=== PATIENT | male | born 1940 | race Hispanic/Latino ===

== ENCOUNTER 2017-10-24 08:16 | Outpatient (CLI) | payer MEDICARE ==
[2017-10-24] MEDS ORDERED: ISOVUE-370 76%-LOCM 1 ML ONE (12:26)
== END 2017-10-24 08:17 | disposition home or self-care (01) ==
LOC: BICCT 08:16
PROVIDERS: ATTEND Family Medicine
DX: R63.4 Abnormal weight loss (principal); K63.89 Other specified diseases of intestine
CPT/HCPCS: 74177

== ENCOUNTER 2017-11-09 15:29 | Outpatient (CLI) | payer MEDICARE | END 2017-11-09 15:30 | disposition home or self-care (01) | LOC: BICRAD 15:29 | PROVIDERS: ATTEND Internal Medicine Gastroenterology | DX: R63.4 Abnormal weight loss (principal) | CPT/HCPCS: 71046 ==

== ENCOUNTER 2017-12-01 09:24 | Outpatient (CLI) | payer OTHER | END 2017-12-01 09:25 | disposition home or self-care (01) | LOC: DTY/OP 09:24 | PROVIDERS: ATTEND Surgery | DX: C16.9 Malignant neoplasm of stomach, unspecified (principal) | CPT/HCPCS: 97802 ==

== ENCOUNTER 2017-12-01 17:15 | Inpatient (IN) | payer MEDICARE ==
[2017-12-01 17:58] VITALS: BMI 20.8
[2017-12-04] MEDS ORDERED: Sodium Chloride 0.9% 100 ML ONE (09:00)
[2017-12-04] MEDS ORDERED: cefOXitin 2 GM VIAL ONE (09:00)
[2017-12-04] MEDS ORDERED: Bupivacaine/Epinephrine 0.25% 30 ML VIAL ONE (10:00)
[2017-12-04] MEDS ORDERED: HYDROmorphone 2 MG/ML VIAL ONE (10:14)
[2017-12-04] MEDS ORDERED: Fentanyl 100 MCG/2 ML VIAL ONE (10:14)
[2017-12-04] MEDS ORDERED: Dextrose 50% Abboject 50 ML SYRINGE SLOW IVP PRN (12:44)
[2017-12-04] MEDS ORDERED: Promethazine HCl 25 MG/ML VIAL IM PRN ×3 (12:44→13:13)
[2017-12-04] MEDS ORDERED: Ondansetron HCl/PF 4 MG/2 ML Vial IVP PRN ×3 (12:44→13:13)
[2017-12-04] MEDS ORDERED: Hydrocodone-Acetamin 15 ML UDCUP PO PRN ×2 (12:44→13:25)
[2017-12-04] MEDS ORDERED: diphenhydrAMINE 50 MG/ML VIAL IVP PRN ×2 (12:44→13:13)
[2017-12-04] MEDS ORDERED: Dextrose 5% in Water 1,000 ML IV PRN (12:44)
[2017-12-04] MEDS ORDERED: Promethazine HCl 25 MG/ML VIAL SLOW IVP PRN (12:48)
[2017-12-04] MEDS ORDERED: HYDROmorphone 2 MG/ML VIAL SLOW IVP PRN (12:48)
--- NOTE | 2017-12-04 13:01 | OP ---
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 SURGEON: Gopi Schulz M.D. PROCEDURES PERFORMED: Laparoscopic hemigastrectomy with Kimber-en-Y gastrojejunostomy and esophagogast roduodenoscopy. INDICATIONS: A 77-year-old male who had an EGD showing irregular antrum. Biopsies were positive for adenocarcinoma. FINDINGS: About a 2 cm area of irregular mucosa in the distal antrum. It was fairly flat irregulari ty. There was a single enlarged lymph node that was sent with pathology specimen. I did not see any real sigmoid mesentery mass. PROCEDURE IN DETAIL: After informed consent was obtained, the patient was taken to the operating jhoana m and given general endotracheal anesthesia, placed in the supine position. The abdomen was prepped and draped in usual fashion. Local anesthesia infiltrated subcutaneously and deep. A 12 mm incision was performed approximately 8 inches below the xiphoid slightly to the left. Veress needle inserted . Drop test performed. Pneumoperitoneum was created to a volume of 2 liters of carbon dioxide. Uti lizing a bladeless 12 mm trocar and 0 degree laparoscope, direct visual entry into the abdominal cavi ty was performed. Pneumoperitoneum was created to a pressure of 15 mmHg. Two [address] d on the right and one on the left. The sigmoid colon was found. It was inspected as well as its me sentery. I did see one area of hemangioma, but really did not see any other masses. The ligament of Treitz was found and 40 cm of small bowel was measured off and the jejunum was divided utilizing a l inear 60 mm white load stapler. Then, 90 cm of small bowel was measured off and a [id number] funct ional end-to-end anastomosis was performed. The linear 60 mm white load stapler was used to create t he anastomosis. Then, the enterotomy was closed with the linear 60 mm white load stapler. The poten tial hernia space was then closed with a 2-0 silk suture as a pursestring and tied intracorporeally. Then, the patient placed in reverse Trendelenburg position. Nathansen liver retractor inserted. Le ft lobe of liver retracted superiorly. The omentum was taken off the greater curvature and few of th e short gastrics were taken, but I left most of them and then dissection was completed beyond the pyl orus. Then, the lesser curve was also divided. I did find one lymph node that was initially part of the specimen, but it was sent separately. Then, branch of the gastroduodenal artery was clipped and divided. The duodenum was divided utilizing the TAMMY distal to the pylorus. Then, the linear 60 mm blue load stapler was used to divide the stomach above the incisura from the short gastrics to just b eneath the right gastric artery. This specimen was placed in a large Endosac and removed from the ab domen in the Endosac, sent to pathology for further analysis. I did open the specimen to confirm negro t we did get an irregular area consistent with a cancer. Then, Kimber-en-Y reconstruction was performe d. A gastrotomy was performed by using cautery initially and then enlarged with series of dilators a nd then the Kimber limb was brought up, again cautery used to create enterotomy. The linear 60 mm blue load stapler was used, one limb was placed, one in the bowel and one in the stomach brought up and f ired. The common gastrotomy was closed transversely with a Stratafix 3-0 PDS suture. Intraoperative endoscopy was then performed. The video endoscope inserted under direct vision and advanced into th e Kimber limb. There was no hemorrhage. The proximal stomach was inspected. No other abnormality see n. The stomach was decompressed and the scope removed. Hemostasis was assured. Trocars and retract ors were removed, but the fascia closed with 0 Vicryl suture and the GraNee needle. Hemostasis assur ed. Skin closed with interrupted 4-0 Rapide. Steri-Strips applied. Sterile bandage applied. The p atient tolerated the procedure well and was transferred to recovery in good condition. Sponge and ne edle count verified correct x2.
[2017-12-04] MEDS ORDERED: diphenhydrAMINE 50 MG/ML VIAL IM PRN (13:13)
[2017-12-04] MEDS ORDERED: Naloxone HCl 0.4 mg/ml Vial IV PRN (13:13)
[2017-12-04] MEDS ORDERED: diphenhydrAMINE 25 MG CAP PO PRN (13:13)
[2017-12-04] MEDS ORDERED: Zolpidem Tartrate 5 MG TAB PO PRN (13:13)
[2017-12-04] MEDS ORDERED: fentaNYL Citrate/PF 2,000 MCG in Sodium Chloride 0.9% 60 ML IV PRN (13:13)
[2017-12-04] MEDS ORDERED: Communication Order-Pharmacy FS SCH (13:15)
[2017-12-04] MEDS ORDERED: PROPOFOL 200 MG/20 ML VIAL ONE (14:19)
[2017-12-04] MEDS ORDERED: Glycopyrrolate 0.2 MG/ML 5 ML SYRINGE ONE (14:19)
[2017-12-04] MEDS ORDERED: Ondansetron HCl/PF 4 MG/2 ML Vial ONE (14:19)
[2017-12-04] MEDS ORDERED: Lidocaine 1% PF 5 ML VIAL ONE (14:19)
[2017-12-04] MEDS ORDERED: Ketorolac Tromethamine 30 MG/ML VIAL ONE (14:19)
[2017-12-04] MEDS ORDERED: PHENYLEPHRINE-NS 100 MCG/ML 10 ML SYRINGE ONE (14:19)
[2017-12-04] MEDS ORDERED: ePHEDrine/0.9% NaCl/PF SYRINGE 50 mg/10 ml ONE (14:19)
[2017-12-04] MEDS ORDERED: Prevnar 13-Val Conj/PF 0.5 ML SYRINGE IM ONE (16:30)
[2017-12-04] MEDS: CEFAZOLIN/Water 2 GM/20 ML SYRINGE SLOW IVP SCH (17:21)
[2017-12-04] MEDS: 1/2 NS w/KCL 20 mEq 1,000 ML IV SCH (17:21)
[2017-12-05] MEDS: 1/2 NS w/KCL 20 mEq 1,000 ML IV SCH ×4 (00:24→17:21)
[2017-12-05] MEDS: CEFAZOLIN/Water 2 GM/20 ML SYRINGE SLOW IVP SCH (00:25)
[2017-12-05] MEDS: hydrALAZINE 20 MG/ML VIAL SLOW IVP PRN ×2 (04:12→19:20)
[2017-12-05 05:58] LABS: #Lymphocytes 1.6 thou/uL (1.20-3.40); #Monocytes 0.6 thou/uL (0.11-0.59); #Neutrophils 6.3 thou/uL (1.40-6.50); %Basophils 0.4 % (0.0-1.0); %Eosinophils 0.2 % (0.0-10.0); %Lymphocytes 18.8 % (21.0-51.0); %Monocytes 7.2 % (0.0-10.0); %Neutrophils 73.4 % (42.0-75.0); Hemoglobin 12.1 g/dL (14.0-18.0); Mean Corpuscular HGB CONC 34.3 g/dL (32.0-36.0); Mean Corpuscular Hemoglobin 32.2 pg (27.0-31.0); Mean Corpuscular Volume 93.9 fL (78.0-98.0); Mean Platelet Volume 8.4 fL (7.4-10.4); Platelet Count 162 thou/uL (130-400); RBC Distribution Width 12.4 % (11.5-14.5); Red Blood Cell (RBC) Count 3.77 mill/uL (4.70-6.10); White Blood Cell (WBC) Count 8.6 thou/uL (4.8-10.8)
[2017-12-05 06:12] LABS: Anion Gap 13 mmol/L (10-20); BUN (Urea Nitrogen) 12 mg/dL (8.4-25.7); Calc. Creatinine Clearance 57 mL/min (70-130); Calcium 8.3 mg/dL (7.8-10.44); Carbon Dioxide 23 mmol/L (23-31); Chloride 103 mmol/L (98-107); Estimated GFR-MDRD Greater than 90; Glucose 126 mg/dL (83-110); Potassium 4.3 mmol/L (3.5-5.1); Sodium 135 mmol/L (136-145)
[2017-12-05] MEDS: Enoxaparin Sodium 40 MG/0.4 ML SYRINGE SC SCH (08:24)
[2017-12-05] MEDS: Pantoprazole 40 MG VIAL IVP SCH (08:25)
[2017-12-05] MEDS ORDERED: GASTROGRAFIN 30 ML BOT ONE (08:32)
--- NOTE | 2017-12-05 11:15 | RAD ---
MODIFIED UPPER GI: INDICATIONS: History of gastric bypass. COMPARISON: None. CONTRAST: Gastrografin 15 mL. FLUOROSCOPIC TIME: 1.2 min; 899.2 microgray/meter2. FINDINGS: There is no evidence of contrast extravasation at the gastrojejunostomy site in the left upper quadra nt of the abdomen. There is delayed emptying at the level of the gastrojejunostomy site. There is e ventual gradual emptying into mildly prominent loops of jejunum, within the left upper quadrant of th e abdomen. Additional delayed images are obtained at 10 minutes and 30 minutes, which demonstrate mi nimal migration of the contrast within the loop of jejunum, in the left upper quadrant of the abdomen , suspicious for ileus. IMPRESSION: 1. No evidence of contrast extravasation to suggest leak. 2. Some hold-up of contrast at the level of the gastrojejunostomy site, suspicious for some swelling at the gastrojejunostomy anastomotic site. There is diminished peristalsis involving the small marline l in the left upper quadrant, suspicious for postoperative ileus. POS: [facility]
[2017-12-05] MEDS: Acetaminophen 1,000 MG in Premix Bag 1 BAG IVPB SCH ×3 (11:38→23:33)
[2017-12-05] MEDS: Ketorolac Tromethamine 30 MG/ML VIAL IVP SCH ×2 (14:07→21:47)
[2017-12-05] MEDS ORDERED: Hydrocodone-Acetamin 15 ML UDCUP PO PRN (16:45)
[2017-12-05] MEDS ORDERED: DC PCA Order Set 1 EACH FS ONE (16:47)
[2017-12-05] MEDS: Ondansetron HCl/PF 4 MG/2 ML Vial IVP PRN (21:47)
[2017-12-06] MEDS: hydrALAZINE 20 MG/ML VIAL SLOW IVP PRN (03:29)
[2017-12-06] MEDS: Ondansetron HCl/PF 4 MG/2 ML Vial IVP PRN (04:30)
[2017-12-06] MEDS: Ketorolac Tromethamine 30 MG/ML VIAL IVP SCH ×3 (05:17→21:02)
[2017-12-06] MEDS: Acetaminophen 1,000 MG in Premix Bag 1 BAG IVPB SCH ×2 (05:20→11:49)
[2017-12-06] MEDS: 1/2 NS w/KCL 20 mEq 1,000 ML IV SCH ×3 (05:50→20:47)
[2017-12-06 07:42] LABS: #Lymphocytes 0.7 thou/uL (1.20-3.40); #Monocytes 0.7 thou/uL (0.11-0.59); #Neutrophils 8.5 thou/uL (1.40-6.50); %Basophils 0.1 % (0.0-1.0); %Eosinophils 0.1 % (0.0-10.0); %Lymphocytes 6.7 % (21.0-51.0); %Neutrophils 86.2 % (42.0-75.0); Hemoglobin 13.2 g/dL (14.0-18.0); Mean Corpuscular HGB CONC 34.5 g/dL (32.0-36.0); Mean Corpuscular Hemoglobin 32.3 pg (27.0-31.0); Mean Corpuscular Volume 93.6 fL (78.0-98.0); Mean Platelet Volume 8.4 fL (7.4-10.4); Platelet Count 154 thou/uL (130-400); RBC Distribution Width 12.5 % (11.5-14.5); Red Blood Cell (RBC) Count 4.07 mill/uL (4.70-6.10); White Blood Cell (WBC) Count 9.9 thou/uL (4.8-10.8)
[2017-12-06 08:01] LABS: Anion Gap 15 mmol/L (10-20); BUN (Urea Nitrogen) 14 mg/dL (8.4-25.7); Calc. Creatinine Clearance 54 mL/min (70-130); Calcium 8.7 mg/dL (7.8-10.44); Carbon Dioxide 21 mmol/L (23-31); Chloride 101 mmol/L (98-107); Estimated GFR-MDRD 87; Glucose 154 mg/dL (83-110); Potassium 4.1 mmol/L (3.5-5.1); Sodium 133 mmol/L (136-145)
[2017-12-06] MEDS: Pantoprazole 40 MG VIAL IVP SCH (09:15)
[2017-12-06] MEDS: Enoxaparin Sodium 40 MG/0.4 ML SYRINGE SC SCH (09:15)
[2017-12-06] MEDS: Lisinopril 20 MG TAB PO SCH (09:19)
[2017-12-06] MEDS: Metoclopramide HCl 10 MG/2 ML VIAL IVP SCH ×2 (14:35→21:03)
[2017-12-07] MEDS: Ondansetron HCl/PF 4 MG/2 ML Vial IVP PRN (02:31)
[2017-12-07] MEDS: 1/2 NS w/KCL 20 mEq 1,000 ML IV SCH ×2 (04:04→11:56)
[2017-12-07] MEDS: hydrALAZINE 20 MG/ML VIAL SLOW IVP PRN (04:13)
[2017-12-07] MEDS: Metoclopramide HCl 10 MG/2 ML VIAL IVP SCH ×2 (06:01→14:28)
[2017-12-07] MEDS: Ketorolac Tromethamine 30 MG/ML VIAL IVP SCH ×2 (06:01→14:28)
[2017-12-07] MEDS: Pantoprazole 40 MG VIAL IVP SCH (09:00)
[2017-12-07] MEDS: Enoxaparin Sodium 40 MG/0.4 ML SYRINGE SC SCH (09:00)
[2017-12-07] MEDS: Lisinopril 20 MG TAB PO SCH (09:03)
[2017-12-07] MEDS ORDERED: ISOVUE-370 76%-LOCM 1 ML ONE (10:00)
[2017-12-07] MEDS ORDERED: Succinylcholine Chloride 20 MG/ML 10 ml SYRINGE FS ONE (13:52)
[2017-12-07] MEDS ORDERED: PROPOFOL 200 MG/20 ML VIAL ONE (13:52)
[2017-12-07] MEDS ORDERED: Ondansetron HCl/PF 4 MG/2 ML Vial ONE (13:52)
[2017-12-07] MEDS ORDERED: Lidocaine 1% PF 5 ML VIAL ONE (13:52)
[2017-12-07] MEDS ORDERED: PHENYLEPHRINE-NS 100 MCG/ML 10 ML SYRINGE ONE (13:52)
[2017-12-07] MEDS ORDERED: Benzocaine 20% Spray 60 ML CAN PO SCH (14:45)
--- NOTE | 2017-12-07 16:01 | CT ---
CT ABDOMEN AND PELVIS WITH IV CONTRAST: Date: 12/07/17 HISTORY: Poor gastric emptying post antrectomy. COMPARISON: 04/21/14. FINDINGS: There are postsurgical changes related to patient's history of gastric antrectomy. Multiple radiopaqu e sutures and surgical clips are seen in the upper abdomen in the epigastric region. The most proxima l jejunum is dilated, with the jejunum measuring 3.8 cm in maximal dimensions. There is abrupt transi tion and obstruction at the level of the jejujejunostomy site. The remaining small bowel loops are no rmal in caliber. There is colonic diverticulosis. There is a small left pleural effusion with consolidation at the left lung base, probably attributabl e to passive atelectasis. Tiny right pleural effusion is also present with associated atelectasis. There is a small amount of free fluid in the left upper quadrant adjacent to the stomach, as well as the spleen. There is scattered free intraperitoneal gas within the abdomen, with scattered subcutaneous emphysema , likely related to the recent postsurgical changes. Calcified granuloma is seen in the spleen. The liver, pancreas, bilateral adrenal glands, kidneys, and urinary bladder demonstrate a normal CT a ppearance. The prostate gland is again enlarged and heterogeneous in appearance. Mild vascular calcifications are again seen in the abdominal aorta. No fluid collection is seen to suggest an abscess. There is no lymphadenopathy. There has been no other interval change when compared to the prior study. IMPRESSION: 1. Postsurgical changes related to patient's history of prior antrectomy. The gastrojejunostomy does appear patent in the region of the radiopaque suture material. However, the most proximal jejunum is dilated, and there is an abrupt transition point at the level of postsurgical changes, which is at t he level of jejunum-jejunum anastomosis. 2. Small left and tiny right pleural effusions with consolidation at the left lung base, probably re lated to atelectasis. 3. Small left pleural effusion. 4. Intraperitoneal free gas, as well as scattered emphysema, which is probably attributable to recen t postsurgical changes. 5. Colonic diverticulosis. 6. Heterogeneous enlarged prostate gland. Above findings discussed with Dr. Schulz on 12/07/17 at 1417 hours. CODE CR. ADDENDUM: Patient did have prior comparison study at [facility] on 10-24-17. Yuval rison is now available to that exam. As noted above, there has been interval antrectomy and evidence of jejunum-jejunum anastomosis since the prior exam. There was a mass seen within the mesenteric side of the sigmoid colon on prior exam which is not iden tified on today's examination, but there is a small amount of fluid and stranding now present in this region, and findings are likely post-surgical related to recent excisional biopsy of this region. Carter rgical clip is seen adjacent to the sigmoid colon. 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 However, this is not appreciated on today's examination. POS: [facility]
[2017-12-07] MEDS ORDERED: Sodium Chloride 0.9% 100 ML ONE (20:40)
[2017-12-07] MEDS ORDERED: cefOXitin 2 GM VIAL ONE (20:40)
[2017-12-07] MEDS ORDERED: Fentanyl 100 MCG/2 ML VIAL ONE (20:49)
[2017-12-07] MEDS ORDERED: Sodium Chloride 0.9% 30 ML ONE (21:09)
[2017-12-07] MEDS ORDERED: Albumin 5% 500 ML ONE ×2 (21:37→21:57)
[2017-12-07] MEDS ORDERED: Promethazine HCl 25 MG/ML VIAL IM PRN (22:35)
[2017-12-07] MEDS ORDERED: Promethazine HCl 25 MG/ML VIAL SLOW IVP PRN (22:35)
[2017-12-07] MEDS ORDERED: Ondansetron HCl/PF 4 MG/2 ML Vial IVP PRN (22:35)
--- NOTE | 2017-12-07 22:43 | RAD ---
CHEST ONE VIEW: 12/07/17 HISTORY: Central line placement. FINDINGS: The cardiac silhouette is magnified by projection. Pulmonary vasculature is slightly engorged. Medias tinum is midline. Tip of a left subclavian central venous catheter overlies the superior vena cava. N asogastric tube descends to the stomach. Lung markings extend beyond a skin fold along the left later al chest wall that mimics a pneumothorax. IMPRESSION: Left subclavian central venous catheter is in good radiographic position. POS: [facility]
--- NOTE | 2017-12-07 22:49 | RAD ---
ABDOMEN ONE VIEW: 12/07/17 HISTORY: Nasogastric tube placement. FINDINGS/IMPRESSION: The visualized bowel gas pattern is nonspecific. Metallic clips overlie the upper abdomen and left ab domen. Nasogastric tube descends the stomach with the proximal port just below the level of the left hemidia phragm. Advancing the tube approximately 5 cm may result in better positioning. POS: [facility]
--- NOTE | 2017-12-08 02:14 | OP ---
PREOPERATIVE DIAGNOSIS: Obstructive jejunojejunostomy. SURGEON: Gopi Schulz M.D. PROCEDURE PERFORMED: Central line placement, EGD with placement of NG tube. INDICATIONS: This is a 77-year-old male who 3 days out from a Kimber-en-Y gastrojejunostomy and antrec lorraine for an antral carcinoma who started having nausea and vomiting. He had a CT scan showing a very dilated Kimber limb and gastric remnant. Unfortunately, we were unable to place an NG tube due to pat ient's tolerance and the anatomy. FINDINGS: Good backflow of venous blood, left subclavian. EGD showed 1500 mL of coffee-ground fluid . There was some mucosal ischemia noted. I was able to get down about 80 cm, but was afraid to proc eed much further as I did not want to put too much more tension on that gastrojejunostomy. PROCEDURE IN DETAIL: After informed consent was obtained, the patient was taken to the operating jhoana m and given general endotracheal anesthesia. He was placed in the supine position and then to Trende lenburg position. His chest and neck were prepped and draped in usual fashion. Local anesthesia inf iltrated. An introducer needle was inserted in left subclavian. Good backflow of venous blood. J-w pan threaded easily. The skin incised with an 11 blade. The dilator was used. The pre-flushed trip le lumen catheter inserted over the wire. The wire was removed. Each of the ports aspirated. Good backflow of venous blood, flushed with saline, sutured in place with 3-0 silk suture. Sterile bandag e applied. Then an NG tube had been placed and then a video endoscope inserted transorally and advan sue under direct vision into the stomach, approximately 1500 mL of coffee-ground fluid removed. The anastomosis of gastrojejunostomy inspected. It was fairly patent. The jejunal mucosa looked a littl e dusky, very carefully advanced the scope down the Kimber limb, but some tight curves and I was afraid to put too much pressure on this bowel loop and since we now finally had an NG tube in place. He elected to abort the third of the procedure at this time, sucked out as much of the fluid as poss ible, left the NG tube in place and removed the scope. The NG tube was then taped in place. The pat ient tolerated the procedure and transferred to recovery in fair condition.
[2017-12-08] MEDS: 1/2 NS w/KCL 20 mEq 1,000 ML IV SCH ×4 (03:39→20:18)
[2017-12-08] MEDS: Metoclopramide HCl 10 MG/2 ML VIAL IVP SCH ×4 (05:36→20:18)
[2017-12-08] MEDS: cefOXitin 2 GM in Sodium Chloride 0.9% 100 ML IVPB SCH ×3 (05:36→20:18)
[2017-12-08 05:38] LABS: #Lymphocytes 1.1 thou/uL (1.20-3.40); #Monocytes 0.6 thou/uL (0.11-0.59); #Neutrophils 6.5 thou/uL (1.40-6.50); %Basophils 0.3 % (0.0-1.0); %Eosinophils 0.4 % (0.0-10.0); %Lymphocytes 13.2 % (21.0-51.0); %Monocytes 6.7 % (0.0-10.0); %Neutrophils 79.4 % (42.0-75.0); Hemoglobin 10.5 g/dL (14.0-18.0); Mean Corpuscular HGB CONC 34.4 g/dL (32.0-36.0); Mean Corpuscular Hemoglobin 32.4 pg (27.0-31.0); Mean Platelet Volume 8.9 fL (7.4-10.4); Platelet Count 145 thou/uL (130-400); RBC Distribution Width 12.4 % (11.5-14.5); Red Blood Cell (RBC) Count 3.26 mill/uL (4.70-6.10); White Blood Cell (WBC) Count 8.2 thou/uL (4.8-10.8)
[2017-12-08 05:44] LABS: Anion Gap 13 mmol/L (10-20); BUN (Urea Nitrogen) 12 mg/dL (8.4-25.7); Calc. Creatinine Clearance 59 mL/min (70-130); Calcium 8.4 mg/dL (7.8-10.44); Carbon Dioxide 20 mmol/L (23-31); Chloride 108 mmol/L (98-107); Estimated GFR-MDRD Greater than 90; Glucose 104 mg/dL (83-110); Potassium 4.1 mmol/L (3.5-5.1); Sodium 137 mmol/L (136-145)
[2017-12-08] MEDS: Lisinopril 20 MG TAB PO SCH (08:53)
[2017-12-08] MEDS: Enoxaparin Sodium 40 MG/0.4 ML SYRINGE SC SCH (08:56)
[2017-12-08] MEDS: Pantoprazole 40 MG VIAL IVP SCH (08:58)
[2017-12-08] MEDS: Fat Emulsion 250 ML, Multivitamins, Adult 10 ML, Multitrace-5 5 ML in D15W-AA 5% with L... IV SCH (14:36)
--- NOTE | 2017-12-08 22:32 | PRG ---
DATE OF SERVICE: 12/08/2017 HISTORY OF PRESENT ILLNESS: The patient reports feeling much better today. He is having no pain, no shoulder pain, nausea has resolved. He still had not passed any gas. PHYSICAL EXAMINATION: VITAL SIGNS: Temperature is 97.7, pulse 81, blood pressure 153/50. He has had 300 out of his NG tub e. He is making good urine. LABORATORY DATA: White count 8.2, H&H 10 and 30, platelet count 145. Electrolytes are fine. CO2 is 20. The pathology came back 6 nodes negative and clear margins on the adenocarcinoma. ASSESSMENT: Obstruction at jejunojejunostomy. I am thinking that is going to be edema. PLAN: Continue bowel rest, NG suction. TPN therapy.
[2017-12-09] MEDS: 1/2 NS w/KCL 20 mEq 1,000 ML IV SCH ×3 (03:51→20:47)
[2017-12-09] MEDS: Metoclopramide HCl 10 MG/2 ML VIAL IVP SCH ×3 (05:45→21:19)
[2017-12-09] MEDS: cefOXitin 2 GM in Sodium Chloride 0.9% 100 ML IVPB SCH ×3 (05:46→21:19)
[2017-12-09] MEDS: Enoxaparin Sodium 40 MG/0.4 ML SYRINGE SC SCH (08:48)
[2017-12-09] MEDS: Pantoprazole 40 MG VIAL IVP SCH (08:50)
[2017-12-09] MEDS: Lisinopril 20 MG TAB PO SCH (09:09)
[2017-12-09] MEDS: Insulin Regular 300 UNITS/3 ML VIAL SC PRN ×2 (12:16→18:34)
[2017-12-09] MEDS: Fat Emulsion 250 ML, Multivitamins, Adult 10 ML, Multitrace-5 5 ML in D15W-AA 5% with L... IV SCH (14:25)
--- NOTE | 2017-12-09 22:51 | PDOC.GSPN ---
Surgery Progress Note: Subj - Subjective Narrative: Patient is not having any nausea and his pain is controlled but he is very bothered by having to go to the bathroom frequently. He is afebrile with normal vital signs except for occasional increase in his blood pressure. NG tube put out 900 yesterday and urine output was 700. He is receiving quite a bit 90 fluids because he is on maintenance fluids plus TPN. He also states that at home he takes Flomax which he has been unable to take since his surgery. His abdomen is soft and nondistended. He has appropriate postoperative tenderness and his incisions are healing. Assessment/plan: Doing well overall but I'm concerned about the possibility of urinary retention I asked the nurse to do a bladder scan after his next void and this showed over 500 mL's of urine retained in the bladder so Corbin catheter was placed. We have cut back his total IV fluids to equal maintenance rate with his TPN. He has sliding scale insulin ordered. His NG output seems to be a little bit clearer today. We will await return of GI function. Given the difficulty with placing the NG tube, I may elect to get a Gastrografin study before removing it. Surgery Progress Note: Obj - Vital signs Vital signs: Vital Signs - Most Recent Temp Pulse Resp BP Pulse Ox 98.4 F 71 16 166/84 H 95 12/09/17 20:05 12/09/17 20:05 12/09/17 20:05 12/09/17 19:27 12/09/17 19:27 Surgery Progress Note: Results - Labs Result Diagrams: 12/08/17 03:45 12/08/17 03:45 Lab results: Laboratory Results - last 24 hr 12/09/17 12/09/17 12:00 18:25 POC Glucose 225 H 185 H
[2017-12-10] MEDS: Metoclopramide HCl 10 MG/2 ML VIAL IVP SCH ×3 (05:50→22:11)
[2017-12-10] MEDS: cefOXitin 2 GM in Sodium Chloride 0.9% 100 ML IVPB SCH ×3 (05:50→22:10)
[2017-12-10] MEDS: Insulin Regular 300 UNITS/3 ML VIAL SC PRN ×3 (05:51→18:54)
[2017-12-10] MEDS: Enoxaparin Sodium 40 MG/0.4 ML SYRINGE SC SCH (08:47)
[2017-12-10] MEDS: 1/2 NS w/KCL 20 mEq 1,000 ML IV SCH ×2 (08:47→16:38)
[2017-12-10] MEDS: Lisinopril 20 MG TAB PO SCH (08:47)
[2017-12-10] MEDS: Pantoprazole 40 MG VIAL IVP SCH (08:47)
[2017-12-10 11:02] LABS: PTT 52.5 SEC (22.9-36.1); Prothrombin Time 13.6 SEC (12.0-14.7)
[2017-12-10 11:19] LABS: ALT (SGPT) 34 U/L (8-55); AST (SGOT) 17 U/L (5-34); Albumin 3.7 g/dL (3.4-4.8); Alkaline Phosphatase 50 U/L (40-150); Anion Gap 13 mmol/L (10-20); BUN (Urea Nitrogen) 15 mg/dL (8.4-25.7); Bilirubin, Total 0.6 mg/dL (0.2-1.2); Calc. Creatinine Clearance 58 mL/min (70-130); Calcium 9.5 mg/dL (7.8-10.44); Carbon Dioxide 24 mmol/L (23-31); Cardiac Risk 3.6 (Less than 4.5); Chloride 105 mmol/L (98-107); Cholesterol 97 mg/dl (< 200 Desired); Estimated GFR-MDRD Greater than 90; Glucose 172 mg/dL (83-110); HDL Cholesterol 27 mg/dL (>60 Neg Risk); LDL Cholesterol, Calculated 52 mg/dL; Magnesium 1.9 mg/dL (1.6-2.6); Phosphorus 3.5 mg/dL (2.3-4.7); Potassium 3.8 mmol/L (3.5-5.1); Protein, Total 6.7 g/dL (5.8-8.1); Sodium 138 mmol/L (136-145); Triglycerides 91 mg/dL (Less than 150)
[2017-12-10] MEDS: hydrALAZINE 20 MG/ML VIAL SLOW IVP PRN (12:43)
[2017-12-10] MEDS: Sodium Acetate 2 mEq/ml 40 MEQ, Sodium Chloride 30 MEQ, Potassium Chloride 20 MEQ, Pota... IV SCH (14:37)
--- NOTE | 2017-12-10 16:43 | PDOC.GSPN ---
Surgery Progress Note: Subj - Subjective Narrative: Patient is feeling okay today. He has been coughing quite a bit. No nausea or vomiting, but no flatus either. NG put out 480 yesterday and had 1450 from his Corbin catheter. Abdomen is soft and nondistended. I don't really hear any bowel sounds today. He was encouraged to walk in the halls frequently. We will await return of bowel function. Surgery Progress Note: Obj - Vital signs Vital signs: Vital Signs - Most Recent Temp Pulse Resp BP Pulse Ox 98.2 F 112 H 16 141/86 H 98 12/10/17 16:27 12/10/17 16:27 12/10/17 16:27 12/10/17 16:27 12/10/17 16:27 Surgery Progress Note: Results - Labs Result Diagrams: 12/08/17 03:45 12/10/17 10:46 Lab results: Laboratory Results - last 24 hr 12/10/17 12/10/17 12/10/17 05:39 10:46 10:46 PT INR APTT Sodium 138 Potassium 3.8 Chloride 105 Carbon Dioxide 24 Anion Gap 13 BUN 15 Creatinine 0.80 Estimated GFR (MDRD) Greater than 90 Glucose 172 H POC Glucose 219 H Calcium 9.5 Phosphorus 3.5 Magnesium 1.9 Total Bilirubin 0.6 AST 17 ALT 34 Alkaline Phosphatase 50 Serum Total Protein 6.7 Albumin 3.7 Globulin 3.0 Albumin/Globulin Ratio 1.2 Prealbumin 12.0 L Triglycerides 91 Cholesterol 97 LDL Cholesterol, Calc 52 HDL Cholesterol 27 Heart Disease Risk Ratio 3.6 12/10/17 12/10/17 10:46 11:46 PT 13.6 INR 1.0 APTT 52.5 H Sodium Potassium Chloride Carbon Dioxide Anion Gap BUN Creatinine Estimated GFR (MDRD) Glucose POC Glucose 181 H Calcium Phosphorus Magnesium Total Bilirubin AST ALT Alkaline Phosphatase Serum Total Protein Albumin Globulin Albumin/Globulin Ratio Prealbumin Triglycerides Cholesterol LDL Cholesterol, Calc HDL Cholesterol Heart Disease Risk Ratio
[2017-12-11] MEDS: Insulin Regular 300 UNITS/3 ML VIAL SC PRN ×4 (01:01→18:20)
[2017-12-11] MEDS: 1/2 NS w/KCL 20 mEq 1,000 ML IV SCH ×3 (02:11→18:19)
[2017-12-11] MEDS: cefOXitin 2 GM in Sodium Chloride 0.9% 100 ML IVPB SCH ×3 (05:23→22:42)
[2017-12-11] MEDS: Metoclopramide HCl 10 MG/2 ML VIAL IVP SCH ×3 (05:23→22:42)
[2017-12-11] MEDS: Lisinopril 20 MG TAB PO SCH (09:06)
[2017-12-11] MEDS: Enoxaparin Sodium 40 MG/0.4 ML SYRINGE SC SCH (09:06)
[2017-12-11] MEDS: Pantoprazole 40 MG VIAL IVP SCH (09:06)
[2017-12-11] MEDS: Sodium Acetate 2 mEq/ml 40 MEQ, Sodium Chloride 30 MEQ, Potassium Chloride 20 MEQ, Pota... IV SCH (13:59)
--- NOTE | 2017-12-11 16:33 | PDOC.GSPN ---
Surgery Progress Note: Subj - Subjective Narrative: Pt has started to pass gas and had a few "smears" of stool last night. No nausea and NG output has gone down. Abdomen exam is benign and bowel sounds are improved. Gastrografin study ordered for AM. Surgery Progress Note: Obj - Vital signs Vital signs: Vital Signs - Most Recent Temp Pulse Resp BP Pulse Ox 98.2 F 69 18 139/74 97 12/11/17 15:16 12/11/17 15:16 12/11/17 15:16 12/11/17 15:16 12/11/17 15:16 Surgery Progress Note: Results - Labs Result Diagrams: 12/08/17 03:45 12/10/17 10:46 Lab results: Laboratory Results - last 24 hr 12/11/17 12/11/17 05:22 11:31 POC Glucose 205 H 232 H
[2017-12-12] MEDS: Insulin Regular 300 UNITS/3 ML VIAL SC PRN ×5 (00:39→23:55)
[2017-12-12] MEDS: cefOXitin 2 GM in Sodium Chloride 0.9% 100 ML IVPB SCH ×3 (06:26→21:26)
[2017-12-12] MEDS: Metoclopramide HCl 10 MG/2 ML VIAL IVP SCH ×3 (06:27→21:27)
[2017-12-12] MEDS: 1/2 NS w/KCL 20 mEq 1,000 ML IV SCH ×3 (06:28→16:11)
--- NOTE | 2017-12-12 09:53 | PRG ---
DATE OF SERVICE: 12/12/2017 SUBJECTIVE: The patient is feeling much better. He has had a couple of bowel movements. He is pass ing flatus. He does feel weak, minimal pain, no nausea or vomiting. PHYSICAL EXAMINATION: VITAL SIGNS: Temperature is 98, pulse 68, blood pressure 146/82. GENERAL: He looks good. His incisions look good. ABDOMEN: Soft, nondistended. ASSESSMENT: Starting to open up. PLAN: We are going to repeat a barium swallow to make sure everything is opened, then pull his NG tu be and start him on liquids.
[2017-12-12] MEDS: Enoxaparin Sodium 40 MG/0.4 ML SYRINGE SC SCH (10:47)
[2017-12-12] MEDS: Pantoprazole 40 MG VIAL IVP SCH (10:47)
[2017-12-12] MEDS: Lisinopril 20 MG TAB PO SCH (10:48)
--- NOTE | 2017-12-12 14:09 | RAD ---
GASTROGRAFIN SMALL BOWEL: HISTORY: Evaluate for patent jejunojejunostomy. FINDINGS: [facility] abdomen radiograph demonstrates surgical clips and suture material in the left hemiabd omen and epigastric region. Nasogastric tube projects over the left upper quadrant. The patient was administered Gastrografin, which opacified the stomach and the duodenum. Gastrografi n does not pass beyond the third portion of the duodenum. After 4 hours and 15 minutes, there is no significant passage of radiotracer. IMPRESSION: No significant passage of radiotracer beyond the distal portion of the duodenum after 4 hours and 15 minutes. Findings suggest an obstructive process at this level. POS: [facility]
[2017-12-12] MEDS: Sodium Acetate 2 mEq/ml 40 MEQ, Sodium Chloride 30 MEQ, Potassium Chloride 20 MEQ, Pota... IV SCH (14:46)
[2017-12-12] MEDS ORDERED: MD-Gastroview 120 ML BOT ONE (14:59)
[2017-12-13] MEDS: 1/2 NS w/KCL 20 mEq 1,000 ML IV SCH ×3 (00:23→19:06)
[2017-12-13] MEDS: Insulin Regular 300 UNITS/3 ML VIAL SC PRN ×4 (05:19→23:45)
[2017-12-13] MEDS: cefOXitin 2 GM in Sodium Chloride 0.9% 100 ML IVPB SCH ×3 (05:19→21:39)
[2017-12-13] MEDS: Metoclopramide HCl 10 MG/2 ML VIAL IVP SCH ×3 (05:19→21:40)
[2017-12-13 05:59] LABS: ALT (SGPT) 72 U/L (8-55); AST (SGOT) 23 U/L (5-34); Albumin 3.7 g/dL (3.4-4.8); Alkaline Phosphatase 94 U/L (40-150); Anion Gap 12 mmol/L (10-20); BUN (Urea Nitrogen) 24 mg/dL (8.4-25.7); Bilirubin, Total 1.2 mg/dL (0.2-1.2); Calc. Creatinine Clearance 54 mL/min (70-130); Calcium 9.5 mg/dL (7.8-10.44); Carbon Dioxide 28 mmol/L (23-31); Chloride 101 mmol/L (98-107); Estimated GFR-MDRD 86; Globulin 3.3 g/dL (2.4-3.5); Glucose 170 mg/dL (83-110); Magnesium 2.1 mg/dL (1.6-2.6); Phosphorus 3.8 mg/dL (2.3-4.7); Potassium 4.1 mmol/L (3.5-5.1); Sodium 137 mmol/L (136-145)
[2017-12-13] MEDS: Enoxaparin Sodium 40 MG/0.4 ML SYRINGE SC SCH (08:28)
[2017-12-13] MEDS: Pantoprazole 40 MG VIAL IVP SCH (08:28)
[2017-12-13] MEDS: Lisinopril 20 MG TAB PO SCH (08:28)
--- NOTE | 2017-12-13 09:41 | RAD ---
ABDOMEN ONE VIEW: History: 77-year-old male with history of follow up obstruction. Comparison: 12-07-17 FINDINGS: Extensive post-operative changes are noted in the left abdomen region. An NG tube remains in place. T here is scattered gas and fecal material in the colon. There is a very tiny amount of residual dilute contrast media within what appears to be a distal duodenum or proximal jejunal loop. No significant contrast passage into the distal small bowel or colon when compared to the small bowel study of 8. IMPRESSION: Extensive post-operative changes in the left and upper abdomen. NG tube is in place. A tiny amount of dilute contrast in what appears to be distal duodenum or possibly a proximal jejunal loop. No eviden ce for contrast passage into the distal small bowel or colon. POS: [facility]
--- NOTE | 2017-12-13 11:38 | PRG ---
DATE OF SERVICE: 12/13/2017 SUBJECTIVE: Patient says he feels fine. No nausea, no pain. He is still passing gas at his bottom. PHYSICAL EXAMINATION: VITAL SIGNS: He is afebrile. Vital signs are fine. NG output is 1500, but that is with all the con trast that we sucked out. ABDOMEN: Soft, nondistended, nontender. Repeat KUB just still shows some residual contrast not tony g through. ASSESSMENT: Partial obstruction of the Kimber limb. PLAN: GI consultation for endoscopy. If it looks like mechanically, he is going to have to have it redone. We will consider at the time of surgery dealing with his rectal polyp as well.
[2017-12-13] MEDS ORDERED: PROPOFOL 200 MG/20 ML VIAL ONE (11:43)
[2017-12-13] MEDS ORDERED: Lidocaine 1% PF 5 ML VIAL ONE (11:43)
--- NOTE | 2017-12-13 16:10 | CON ---
DATE OF CONSULTATION: 12/13/2017 REASON FOR CONSULTATION: Postop nausea and vomiting. HISTORY: Mr. Hall is a 77-year-old male who initially underwent an outpatient EGD and colonoscopy done by Dr. Dasilva on 11/13/2017 for abnormal GI tract findings that showed possible mass in the sigmoid mesentery. EGD showed a cratered ulcer in the gastric antrum that turned out to be an adenocarcinoma. He also has multiple colon polyps in addition to a large 3 cm rectal polyp. Patient subsequently underwent a laparoscopic hemigastrectomy with Kimber-en-Y gastrojejunostomy. However, he had persistent nausea, vomiting. A CT obtained showed patent gastrojejunostomy; however, proximal jejunum was dilated near the jejunum anastomosis. NG tube placed. Currently, he denies any nausea, vomiting with gastric decompression. There is no abdominal pain. A small bowel series of pain yesterday still showed contrast in the Kimber limb even after 4 hours. PAST MEDICAL HISTORY: 1. Hypertension. 2. Adult onset diabetes. 3. Benign prostatic hypertrophy. PAST SURGICAL HISTORY: Laparoscopic hemigastrectomy as above. ALLERGIES: None. MEDICATIONS: At home include lisinopril/HCTZ 20/25 daily, metformin 500 mg b.i.d., tamsulosin 4 mg at bedtime, felodipine 5 mg at bedtime p.r.n., and fluticasone nasal spray. SOCIAL HISTORY: Patient is and retired. Has 5 children. He is a former smoker, no active tobacco usage. No alcohol usage. FAMILY HISTORY: Negative for any known GI problem, liver disease or GI malignancy. REVIEW OF SYSTEMS: Ten point review of systems did not show any pertinent positive or negative. PHYSICAL EXAMINATION: VITAL SIGNS: Temperature is 97.8, blood pressure 133/84, pulse of 65. GENERAL: He is alert, conversant, in no distress. HEENT: Shows anicteric sclerae. Oropharynx clear. There is nasogastric tube through the nostril with clear effluent. CARDIOVASCULAR: Shows normal S1, S2, regular rate and rhythm. CHEST: Shows normal breath sounds. ABDOMEN: Soft, flat, no distention, no active bowel sounds. EXTREMITIES: Shows no edema. LABORATORY DATA: WBC is 8.2, hemoglobin 10.5, platelet count of 145. INR is 1.0, PTT 52. Electrolytes within normal range, creatinine 0.85. LFTs show bilirubin 1.2, ALT 72, AST 23, alkaline phosphatase of 94. ASSESSMENT: History of gastric cancer, status post laparoscopic antrectomy with Kimber-en-Y gastrojejunostomy. He has radiographic evidence of obstruction of the Kimber limb since the surgery 8 days ago. PLAN: Diagnostic upper endoscopy today to look for any intraluminal process. I have discussed indications with Mr. Hall. He agrees to proceed. [facility]
[2017-12-13] MEDS ORDERED: cefOXitin 2 GM in Sodium Chloride 0.9% 100 ML IVPB SCH (17:30)
--- NOTE | 2017-12-13 22:56 | OP ---
DATE OF PROCEDURE: 12/13/2017 PROCEDURE: Esophagogastroduodenoscopy. PHYSICIAN: Ambrose Hyman MD MEDICATIONS: Given per Anesthesiology Department. PREPROCEDURE DIAGNOSES: 1. Persistent postoperative nausea, vomiting. 2. Radiographic evidence of bowel obstruction of the Kimber limb. 3. Status post partial gastrectomy with Kimber-en-Y gastrojejunostomy. POSTPROCEDURE DIAGNOSES: 1. Very edematous gastrojejunostomy anastomosis. 2. Abrupt termination of the Kimber limb at approximately 7 cm from the anastomosis, unable to insufflate with air or heavy instillation of water into the Kimber limb, suggesting extrinsic compression. 3. Otherwise normal gastric lumen. 4. Normal esophagus with a GE junction at 40 cm. PROCEDURE IN DETAIL: Written consent was obtained prior to procedure. After adequate sedation, the forward-viewing endoscope was advanced down the stomach under direct vision. Esophagus appeared normal. Z-line was noted at 40 cm. The gastric lumen contains NG tube suction trauma. The anastomosis was visualized and appeared to be very edematous. The Kimber limb was able to enter. This was explored for only a short 7 cm. There was an abrupt into the Kimber limb. The endoscope was not able to traverse. Air insufflation rate was increased to the max to help expand the lumen. However, this was not successful. A large amount of irrigant was instilled into the Kimber limb. This was not able to open up the lumen either. The instrument was then fully removed. The patient tolerated the procedure well. ASSESSMENT: Termination of Kimber limb at approximately 7 cm from the anastomosis , unable to open up the lumen with air insufflation or water irrigation, most likely from extrinsic compression. RECOMMENDATIONS: The patient would likely need reexploration. [facility]
[2017-12-14] MEDS: 1/2 NS w/KCL 20 mEq 1,000 ML IV SCH ×2 (01:06→16:25)
[2017-12-14 05:00] LABS: ALT (SGPT) 61 U/L (8-55); AST (SGOT) 19 U/L (5-34); Albumin 4.1 g/dL (3.4-4.8); Alkaline Phosphatase 107 U/L (40-150); Anion Gap 13 mmol/L (10-20); BUN (Urea Nitrogen) 19 mg/dL (8.4-25.7); Bilirubin, Total 1.2 mg/dL (0.2-1.2); Calc. Creatinine Clearance 48 mL/min (70-130); Calcium 9.6 mg/dL (7.8-10.44); Carbon Dioxide 26 mmol/L (23-31); Chloride 101 mmol/L (98-107); Estimated GFR-MDRD 75; Globulin 3.8 g/dL (2.4-3.5); Glucose 168 mg/dL (83-110); Magnesium 2.1 mg/dL (1.6-2.6); Phosphorus 3.7 mg/dL (2.3-4.7); Potassium 4.3 mmol/L (3.5-5.1); Protein, Total 7.9 g/dL (5.8-8.1); Sodium 136 mmol/L (136-145)
[2017-12-14] MEDS: Metoclopramide HCl 10 MG/2 ML VIAL IVP SCH ×3 (05:05→21:00)
[2017-12-14] MEDS: cefOXitin 2 GM in Sodium Chloride 0.9% 100 ML IVPB SCH ×3 (05:05→18:25)
[2017-12-14] MEDS: Insulin Regular 300 UNITS/3 ML VIAL SC PRN ×3 (05:09→23:59)
[2017-12-14] MEDS ORDERED: Insulin Regular 300 UNITS/3 ML VIAL ONE (10:25)
[2017-12-14] MEDS ORDERED: Fentanyl 250 MCG/5 ML VIAL ONE (10:59)
[2017-12-14] MEDS ORDERED: Phenylephrine HCL 10 MG/ML VIAL ONE (11:00)
[2017-12-14] MEDS ORDERED: Albumin 25% 0 ML ONE (11:00)
[2017-12-14] MEDS ORDERED: Albumin 5% 0 ML ONE (11:00)
[2017-12-14] MEDS ORDERED: Norepinephrine 4 MG/4 ML VIAL ONE (11:00)
[2017-12-14] MEDS ORDERED: Bupivacaine/Epinephrine 0.25% 30 ML VIAL ONE (11:20)
[2017-12-14] MEDS ORDERED: cefOXitin 2 GM VIAL ONE (12:48)
[2017-12-14] MEDS ORDERED: Ondansetron HCl/PF 4 MG/2 ML Vial IVP PRN (13:51)
[2017-12-14] MEDS: Sodium Acetate 2 mEq/ml 40 MEQ, Sodium Chloride 30 MEQ, Potassium Chloride 20 MEQ, Pota... IV SCH (15:05)
[2017-12-14] MEDS: Morphine 4 MG/ML VIAL SLOW IVP PRN (15:06)
[2017-12-14] MEDS: Pantoprazole 40 MG VIAL IVP SCH (15:07)
[2017-12-14] MEDS: Enoxaparin Sodium 40 MG/0.4 ML SYRINGE SC SCH (15:49)
[2017-12-14] MEDS: Lisinopril 20 MG TAB PO SCH (15:49)
--- NOTE | 2017-12-14 18:11 | OP ---
PREOPERATIVE DIAGNOSIS: Obstructive Kimber limb. SURGEON: Gopi Schulz M.D. PROCEDURE PERFORMED: Laparoscopic assisted revision of jejunojejunostomy. INDICATIONS: A 77-year-old male who is 9 days status post laparoscopic subtotal gastrectomy for canc er who had a Kimber-en-Y reconstruction. He has had obstruction at the Kimber limb attempted endoscopy y esterday was unsuccessful. FINDINGS: Very tight stenosis at the junction of the Kimber limb with the biliopancreatic limb. PROCEDURE IN DETAIL: After informed consent was obtained, the patient was taken to the operating jhoana m, given general endotracheal anesthesia. He was placed in the supine position. The abdomen was pre pped and draped in usual fashion. Local anesthesia infiltrated subcutaneously and deep and a 5 mm in cision was performed through one of the old incisions on the right side. Veress needle inserted. Dr op test performed. Pneumoperitoneum was created to a volume of 2 liters of carbon dioxide. Utilizin g a bladeless 5 mm trocar and 0 degree laparoscope, direct visual into the abdominal cavity was perfo rmed. Pneumoperitoneum was created to a pressure of 15 mmHg. A second 5 mm port was then placed and the anastomosis was inspected. You could see the dilatation of the Kimber limb. It was unclear as to what was causing this obstruction, so a skin incision was created on the left side where the previou s incision had been to remove the gastric remnant and a wound protector was inserted. The anastomosi s was brought up through this, so could be carefully inspected and it appeared to be a stenosis there at that junction, so the Kimber limb was then approximated just distal to the anastomosis, small bowel that was decompressed. The enterotomies created in each and a lclp-ya-eeiq anastomosis was performe d. The common channel was closed with a 3-0 Stratafix with interrupted 3-0 Vicryl. Appear to be audrey y patent, proximal, liquid was able to go through there, no obstruction. The bowel was placed within the abdominal cavity. Posterior layer closed with a running #1 PDS, anterior layer closed with a ru nning #1 PDS. Subcu closed with interrupted 3-0 Vicryl after hemostasis assured and skin closed with a running subcuticular 4-0 Rapide. Dermabond applied. The patient tolerated the procedure well and was transferred to recovery in good condition. Sponge and needle count verified correct x2.
[2017-12-15] MEDS: cefOXitin 2 GM in Sodium Chloride 0.9% 100 ML IVPB SCH ×3 (01:29→18:00)
[2017-12-15] MEDS: 1/2 NS w/KCL 20 mEq 1,000 ML IV SCH ×4 (02:12→17:56)
[2017-12-15] MEDS: Metoclopramide HCl 10 MG/2 ML VIAL IVP SCH ×3 (05:35→21:43)
[2017-12-15] MEDS: Insulin Regular 300 UNITS/3 ML VIAL SC PRN ×3 (05:35→18:01)
[2017-12-15 06:09] LABS: ALT (SGPT) 35 U/L (8-55); AST (SGOT) 11 U/L (5-34); Albumin 3.2 g/dL (3.4-4.8); Alkaline Phosphatase 94 U/L (40-150); Anion Gap 8 mmol/L (10-20); BUN (Urea Nitrogen) 23 mg/dL (8.4-25.7); Bilirubin, Total 1.3 mg/dL (0.2-1.2); Calc. Creatinine Clearance 54 mL/min (70-130); Calcium 8.8 mg/dL (7.8-10.44); Carbon Dioxide 29 mmol/L (23-31); Chloride 100 mmol/L (98-107); Estimated GFR-MDRD 86; Globulin 3.1 g/dL (2.4-3.5); Glucose 234 mg/dL (83-110); Magnesium 1.7 mg/dL (1.6-2.6); Phosphorus 3.4 mg/dL (2.3-4.7); Potassium 4.3 mmol/L (3.5-5.1); Protein, Total 6.3 g/dL (5.8-8.1); Sodium 133 mmol/L (136-145)
[2017-12-15] MEDS: Pantoprazole 40 MG VIAL IVP SCH (08:36)
[2017-12-15] MEDS: Enoxaparin Sodium 40 MG/0.4 ML SYRINGE SC SCH (08:36)
[2017-12-15] MEDS: Lisinopril 20 MG TAB PO SCH (09:37)
[2017-12-15] MEDS ORDERED: Tamsulosin HCl 0.4 MG CAP PO SCH (10:45)
[2017-12-15] MEDS: Sodium Acetate 2 mEq/ml 40 MEQ, Sodium Chloride 30 MEQ, Potassium Chloride 20 MEQ, Pota... IV SCH (14:27)
[2017-12-16] MEDS: 1/2 NS w/KCL 20 mEq 1,000 ML IV SCH ×3 (00:36→14:13)
[2017-12-16] MEDS: Morphine 4 MG/ML VIAL SLOW IVP PRN (00:37)
[2017-12-16] MEDS: cefOXitin 2 GM in Sodium Chloride 0.9% 100 ML IVPB SCH ×3 (00:42→18:23)
[2017-12-16] MEDS: Insulin Regular 300 UNITS/3 ML VIAL SC PRN ×3 (04:02→16:33)
[2017-12-16] MEDS: Metoclopramide HCl 10 MG/2 ML VIAL IVP SCH ×3 (05:23→22:24)
[2017-12-16 05:59] LABS: ALT (SGPT) 27 U/L (8-55); AST (SGOT) 12 U/L (5-34); Albumin 3.3 g/dL (3.4-4.8); Alkaline Phosphatase 98 U/L (40-150); Anion Gap 10 mmol/L (10-20); BUN (Urea Nitrogen) 18 mg/dL (8.4-25.7); Bilirubin, Total 1.4 mg/dL (0.2-1.2); Calc. Creatinine Clearance 57 mL/min (70-130); Calcium 8.8 mg/dL (7.8-10.44); Carbon Dioxide 28 mmol/L (23-31); Chloride 99 mmol/L (98-107); Estimated GFR-MDRD Greater than 90; Globulin 3.3 g/dL (2.4-3.5); Glucose 175 mg/dL (83-110); Potassium 4.2 mmol/L (3.5-5.1); Protein, Total 6.6 g/dL (5.8-8.1); Sodium 133 mmol/L (136-145)
[2017-12-16] MEDS ORDERED: 1/2 NS w/KCL 20 mEq 1,000 ML IV SCH (09:36)
[2017-12-16] MEDS: Tamsulosin HCl 0.4 MG CAP PO SCH (10:21)
[2017-12-16] MEDS: Enoxaparin Sodium 40 MG/0.4 ML SYRINGE SC SCH (10:21)
[2017-12-16] MEDS: Pantoprazole 40 MG VIAL IVP SCH (10:21)
[2017-12-16] MEDS: Lisinopril 20 MG TAB PO SCH ×2 (10:22→10:28)
[2017-12-16] MEDS: Sodium Acetate 2 mEq/ml 40 MEQ, Sodium Chloride 30 MEQ, Potassium Chloride 20 MEQ, Pota... IV SCH (14:13)
[2017-12-17] MEDS: Insulin Regular 300 UNITS/3 ML VIAL SC PRN (00:37)
[2017-12-17] MEDS: cefOXitin 2 GM in Sodium Chloride 0.9% 100 ML IVPB SCH ×3 (02:19→18:05)
[2017-12-17] MEDS ORDERED: Sterile Water 10 ML VIAL IVP SCH (02:38)
[2017-12-17] MEDS ORDERED: Activase 2 MG VIAL CATH SCH (02:38)
[2017-12-17] MEDS: Metoclopramide HCl 10 MG/2 ML VIAL IVP SCH ×3 (06:58→22:21)
[2017-12-17] MEDS: 1/2 NS w/KCL 20 mEq 1,000 ML IV SCH (08:12)
[2017-12-17] MEDS: Enoxaparin Sodium 40 MG/0.4 ML SYRINGE SC SCH (08:20)
[2017-12-17] MEDS: Pantoprazole 40 MG VIAL IVP SCH (08:20)
[2017-12-17] MEDS: Tamsulosin HCl 0.4 MG CAP PO SCH (08:20)
[2017-12-17] MEDS: Lisinopril 20 MG TAB PO SCH (08:23)
[2017-12-17] MEDS ORDERED: Milk Of Magnesia 30 ML UDCUP PO PRN (09:14)
[2017-12-17] MEDS ORDERED: Acetaminophen/Codeine Oral Solution PO PRN (09:14)
[2017-12-17] MEDS ORDERED: Sodium Chloride 0.9% 500 ML IV SCH (09:15)
[2017-12-17] MEDS ORDERED: Acetaminophen/Codeine 120-12MG/5 ML UDCUP PO PRN (09:33)
[2017-12-17 10:09] LABS: #Eosinphils 0.3 thou/uL (0.0-0.7); #Lymphocytes 1.1 thou/uL (1.20-3.40); #Monocytes 0.4 thou/uL (0.11-0.59); #Neutrophils 4.4 thou/uL (1.40-6.50); %Basophils 0.2 % (0.0-1.0); %Eosinophils 4.6 % (0.0-10.0); %Lymphocytes 17.3 % (21.0-51.0); %Monocytes 6.8 % (0.0-10.0); %Neutrophils 71.1 % (42.0-75.0); Hemoglobin 10.4 g/dL (14.0-18.0); Mean Corpuscular HGB CONC 33.9 g/dL (32.0-36.0); Mean Corpuscular Hemoglobin 32.4 pg (27.0-31.0); Mean Corpuscular Volume 95.5 fL (78.0-98.0); Mean Platelet Volume 8.7 fL (7.4-10.4); Platelet Count 204 thou/uL (130-400); RBC Distribution Width 12.1 % (11.5-14.5); Red Blood Cell (RBC) Count 3.21 mill/uL (4.70-6.10); White Blood Cell (WBC) Count 6.1 thou/uL (4.8-10.8)
[2017-12-17 10:17] LABS: INR-International Normal Ratio 1.2; PTT 56.7 SEC (22.9-36.1); Prothrombin Time 14.9 SEC (12.0-14.7)
[2017-12-17 10:37] LABS: ALT (SGPT) 23 U/L (8-55); AST (SGOT) 13 U/L (5-34); Albumin 3.3 g/dL (3.4-4.8); Alkaline Phosphatase 102 U/L (40-150); Anion Gap 12 mmol/L (10-20); BUN (Urea Nitrogen) 20 mg/dL (8.4-25.7); Bilirubin, Total 1.8 mg/dL (0.2-1.2); Calc. Creatinine Clearance 51 mL/min (70-130); Carbon Dioxide 26 mmol/L (23-31); Cardiac Risk 4.5 (Less than 4.5); Chloride 99 mmol/L (98-107); Cholesterol 85 mg/dl (< 200 Desired); Estimated GFR-MDRD 80; Globulin 3.5 g/dL (2.4-3.5); Glucose 169 mg/dL (83-110); HDL Cholesterol 19 mg/dL (>60 Neg Risk); LDL Cholesterol, Calculated 53 mg/dL; Magnesium 1.8 mg/dL (1.6-2.6); Phosphorus 3.4 mg/dL (2.3-4.7); Potassium 4.4 mmol/L (3.5-5.1); Protein, Total 6.8 g/dL (5.8-8.1); Sodium 133 mmol/L (136-145); Triglycerides 67 mg/dL (Less than 150)
[2017-12-17] MEDS ORDERED: Lidocaine 1% PF 5 ML VIAL ONE (14:36)
[2017-12-17] MEDS ORDERED: Esmolol 100 MG/10 ML VIAL ONE (14:36)
[2017-12-17] MEDS ORDERED: ePHEDrine/0.9% NaCl/PF SYRINGE 50 mg/10 ml ONE (14:36)
[2017-12-17] MEDS ORDERED: PHENYLEPHRINE-NS 100 MCG/ML 10 ML SYRINGE ONE (14:36)
[2017-12-17] MEDS ORDERED: Glycopyrrolate 0.2 MG/ML 5 ML SYRINGE ONE (14:36)
[2017-12-17] MEDS ORDERED: Ondansetron HCl/PF 4 MG/2 ML Vial ONE (14:36)
[2017-12-17] MEDS ORDERED: Succinylcholine Chloride 20 MG/ML 10 ml SYRINGE FS ONE (14:36)
[2017-12-17] MEDS ORDERED: PROPOFOL 200 MG/20 ML VIAL ONE (14:36)
--- NOTE | 2017-12-17 15:13 | PRG ---
DATE OF SERVICE: 12/17/2017 SUBJECTIVE: The patient reports he still have incisional pain on that left lateral abdomen. He is n ot taking a lot p.o. and his urine is fairly dark. He is having no nausea. He is passing flatus, bu t no bowel movement. OBJECTIVE: VITAL SIGNS: Temperature is 97.9, blood pressure 113/70, heart rate 73. GENERAL: He looks good. He looks better today. He is awake, alert. LUNGS: Clear. HEART: Regular rate and rhythm. ABDOMEN: Soft, nondistended, nontender, although he is a little bit tender around that incision. Th ere is no erythema or fluctuance. No evidence of hernia. ASSESSMENT: He is having some constipation. He is having difficulty with staying hydrated. PLAN: We will give him a 500 mL bolus of normal saline. He says he does not like the hydrocodone. We will try Tylenol with codeine elixir. Try some MiraLax and Milk of Magnesia. Also, we will add s ome cystic.
[2017-12-18] MEDS: 1/2 NS w/KCL 20 mEq 1,000 ML IV SCH (02:03)
[2017-12-18] MEDS: cefOXitin 2 GM in Sodium Chloride 0.9% 100 ML IVPB SCH ×3 (02:12→17:41)
[2017-12-18] MEDS: Metoclopramide HCl 10 MG/2 ML VIAL IVP SCH ×3 (07:20→22:39)
[2017-12-18] MEDS: Tamsulosin HCl 0.4 MG CAP PO SCH (08:42)
[2017-12-18] MEDS: Enoxaparin Sodium 40 MG/0.4 ML SYRINGE SC SCH (08:42)
[2017-12-18] MEDS: Pantoprazole 40 MG VIAL IVP SCH (08:42)
[2017-12-18] MEDS: Lisinopril 20 MG TAB PO SCH (08:42)
[2017-12-18] MEDS: Polyethylene Glycol 3350 17 GM Packet PO SCH (08:43)
[2017-12-19] MEDS: 1/2 NS w/KCL 20 mEq 1,000 ML IV SCH (02:01)
[2017-12-19] MEDS: cefOXitin 2 GM in Sodium Chloride 0.9% 100 ML IVPB SCH ×3 (02:02→18:21)
[2017-12-19] MEDS: Metoclopramide HCl 10 MG/2 ML VIAL IVP SCH ×2 (06:08→13:59)
[2017-12-19] MEDS: Enoxaparin Sodium 40 MG/0.4 ML SYRINGE SC SCH (09:09)
[2017-12-19] MEDS: Lisinopril 20 MG TAB PO SCH (09:09)
[2017-12-19] MEDS: Polyethylene Glycol 3350 17 GM Packet PO SCH (09:09)
[2017-12-19] MEDS: Pantoprazole 40 MG VIAL IVP SCH (09:09)
[2017-12-19] MEDS: Tamsulosin HCl 0.4 MG CAP PO SCH (09:09)
[2017-12-19] MEDS ORDERED: Magnesium Citrate 300 ML BOT PO SCH (12:15)
[2017-12-19] MEDS ORDERED: Mineral Oil PER 1 ML PO SCH (12:15)
--- NOTE | 2017-12-19 14:33 | PRG ---
DATE OF SERVICE: 12/19/2017 SUBJECTIVE: Patient is doing well except he has not had a bowel movement. He is passing gas, he fee ls better. OBJECTIVE: VITAL SIGNS: Temperature 98, pulse 70, blood pressure 110/71. GENERAL APPEARANCE: He looks good. ABDOMEN: Soft, nondistended, nontender. He is tolerating full liquids. ASSESSMENT: Doing well. PLAN: Mineral oil followed by magnesium citrate. Home when he has a bowel movement.
[2017-12-19] MEDS ORDERED: Fleet Enema 133 ML BOT PR SCH (16:30)
[2017-12-19 16:33] VITALS: BP 122/75; TEMP 97.8
--- NOTE | 2017-12-20 13:18 | DIS ---
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 POSTOPERATIVE DIAGNOSIS: Small-bowel obstruction. PROCEDURES DURING ADMISSION: 1. Laparoscopic partial gastrectomy. 2. Kimber-en-Y gastrojejunostomy. 3. Laparoscopic assisted revision of jejunojejunostomy. 4. Central line placement. HOSPITAL COURSE: The patient was admitted, taken to the operating room where he underwent a laparosc opic subtotal gastrectomy with Kimber-en-Y gastrojejunostomy. Postoperatively, initially did pretty we ll, then he started vomiting. CT scan was obtained showing a very dilated gastric remnant and Kimber l imb. An attempt was made at an NG placement. He could not tolerate it. He went to the operating ro om where he underwent placement of an NG tube and central line. Postprocedure, he was passing some g as, treated with NG tube for a while. GI was consulted. An EGD was performed that showed there was a very tight anastomosis at the jejunojejunostomy, so he was taken back to surgery and laparoscopic a ssisted revision of the jejunojejunostomy was performed and postoperatively, did well. His bowel fun ction returned and his diet was advanced. He did have problems with constipation, but that is a long standing problem. He eventually had a bowel movement. He is now discharged home in good condition o n his usual medications. He will follow up with me in 2 weeks.
== END 2017-12-19 19:05 | disposition home or self-care (01) | DRG 327 ==
LOC: SURG A 12-04 08:21
PROVIDERS: ADMIT Surgery; ATTEND Surgery
PROC: 0DB64ZZ Excision of Stomach, Percutaneous Endoscopic Approach (ICD-10-PCS; principal; 2017-12-04)
PROC: 0D164ZA Bypass Stomach to Jejunum, Percutaneous Endoscopic Approach (ICD-10-PCS; 2017-12-04)
PROC: 0D9680Z Drainage of Stomach with Drainage Device, Via Natural or Artificial Opening Endoscopic (ICD-10-PCS; 2017-12-07)
PROC: 05H633Z Insertion of Infusion Device into Left Subclavian Vein, Percutaneous Approach (ICD-10-PCS; 2017-12-07)
PROC: 0DJ08ZZ Inspection of Upper Intestinal Tract, Via Natural or Artificial Opening Endoscopic (ICD-10-PCS; 2017-12-13)
PROC: 0DJD4ZZ Inspection of Lower Intestinal Tract, Percutaneous Endoscopic Approach (ICD-10-PCS; 2017-12-14)
PROC: 0D1A0ZA Bypass Jejunum to Jejunum, Open Approach (ICD-10-PCS; 2017-12-14)
DX: C16.3 Malignant neoplasm of pyloric antrum (principal); K91.30 Postprocedural intestinal obstruction, unspecified as to partial versus complete; K63.9 Disease of intestine, unspecified; K62.1 Rectal polyp; N40.1 Benign prostatic hyperplasia with lower urinary tract symptoms; R33.8 Other retention of urine; Z53.31 Laparoscopic surgical procedure converted to open procedure; E11.9 Type 2 diabetes mellitus without complications; I10 Essential (primary) hypertension; Z79.84 Long term (current) use of oral hypoglycemic drugs; Z87.891 Personal history of nicotine dependence; Y83.2 Surgical operation with anastomosis, bypass or graft as the cause of abnormal reaction of the patient, or of later complication, without mention of misadventure at the time of the procedure
CPT/HCPCS: 36415; 36416; 71045; 74018; 74177; 74241; 74250; 80048; 80053; 80061; 80076; 83735; 84100; 84134; 85025; 85610; 85730; 88305; 88309; 90471; 90670; 93005; 93010; 94760; A4216; A4217; C9113; G0009; G8978-GP-CJ; G8979-GP-CH; J0131; J0360; J0694; J1170; J1200; J1650; J1815; J1885; J2001; J2270; J2370; J2405; J2704; J2765; J2997; J3010; J3475; J3480; J7050; P9045; P9047

== ENCOUNTER 2017-12-01 17:29 | Outpatient (CLI) | payer MEDICARE | END 2017-12-01 17:30 | disposition home or self-care (01) | LOC: LABBT 17:29 | PROVIDERS: ATTEND Surgery | DX: Z01.818 Encounter for other preprocedural examination (principal); C16.9 Malignant neoplasm of stomach, unspecified; K62.1 Rectal polyp; K63.9 Disease of intestine, unspecified | CPT/HCPCS: 36415; 80053; 80076; 85025; 93005; 93010 ==

== ENCOUNTER 2018-01-31 10:17 | Day surgery (SDC) | payer MEDICARE ==
[2018-01-30 12:39] VITALS: BMI 20.2
[2018-01-31] MEDS ORDERED: Lidocaine 1% PF 5 ML VIAL ONE (13:42)
[2018-01-31] MEDS ORDERED: PROPOFOL 200 MG/20 ML VIAL ONE (13:42)
--- NOTE | 2018-01-31 13:48 | OP ---
DATE OF PROCEDURE: 01/31/2018 SURGEON: Dr. Rangel Dasilva PROCEDURE: Colonoscopy with snare polypectomy. PREOPERATIVE DIAGNOSIS: Followup of a large colon polyp for endoscopic mucosal resection. PROCEDURE IN DETAIL: Informed consent was obtained from the patient. He was sedated with total intr avenous anesthesia. The rectal exam was performed and was normal. The colonoscope was advanced to t he cecum where the ileocecal valve and appendiceal orifice were clearly identified. Two 4 mm polyps were removed from the distal transverse colon, 1 by cold snare polypectomy, 1 by hot snare polypectom y. There was a flat 1.2 cm polyp at the splenic flexure. This polyp was very difficult to visualize . I injected saline underneath it to try to bring the polyp forward so that I could see the entire p olyp. The polyp creased in the center with injection and lifted well on either side, but the center did not. This made it impossible to remove by snare today. A tattoo was placed 2-3 cm proximal and 2-3 cm distal to the polyp. The patient again was noted to have left-sided diverticulosis. There wa s a large polyp in the rectum. This was close to 50% circumferential. The polyp did lift with salin e; however, adequate visualization for endoscopic mucosal resection was not achieved. The distal mar gin of tis polyp was about 7-8 mm proximal to the anal verge. Retroflexed views were unremarkable. No cautery was applied to this polyp. IMPRESSION: 1. A 1.2 cm flat polyp at the splenic flexure which was very difficult to fully visualize, raised wi th saline; however, this crease and center and could not be removed by snare cautery today. A tattoo was marked on the proximal and distal end of this polyp. 2. Large rectal polyp. This was close to 50% circumferential. Adequate positioning and visualizati on for endoscopic mucosal resection could not be achieved today and no cautery was applied to this po lyp. Submucosal injection of saline only was performed. 3. Two small polyps were removed by snare from the distal transverse colon and sent for histopatholo gy. RECOMMENDATIONS: 1. Await histopathology. 2. Referral to a tertiary center to attempt EMR for the large rectal polyp and reattempt endoscopic resection of the splenic flexure polyp. These could ultimately require surgical resection.
== END 2018-01-31 16:30 | disposition home or self-care (01) ==
LOC: SDC 10:17
PROVIDERS: ATTEND Internal Medicine Gastroenterology
PROC: 0DBL8ZX Excision of Transverse Colon, Via Natural or Artificial Opening Endoscopic, Diagnostic (ICD-10-PCS; principal; 2018-01-31)
PROC: 3E0H8GC Introduction of Other Therapeutic Substance into Lower GI, Via Natural or Artificial Opening Endoscopic (ICD-10-PCS; 2018-01-31)
DX: D12.3 Benign neoplasm of transverse colon (principal); K62.1 Rectal polyp; K57.30 Diverticulosis of large intestine without perforation or abscess without bleeding; K63.5 Polyp of colon; E11.9 Type 2 diabetes mellitus without complications; K21.9 Gastro-esophageal reflux disease without esophagitis; I10 Essential (primary) hypertension; Z85.028 Personal history of other malignant neoplasm of stomach; Z90.3 Acquired absence of stomach [part of]; Z79.84 Long term (current) use of oral hypoglycemic drugs; Z79.899 Other long term (current) drug therapy; Z87.891 Personal history of nicotine dependence; Z88.5 Allergy status to narcotic agent
CPT/HCPCS: 88305; J2001; J2704

== ENCOUNTER 2018-02-12 15:41 | Outpatient (CLI) | payer MEDICARE | END 2018-02-12 15:42 | disposition home or self-care (01) | LOC: CTENTCT 15:41 | PROVIDERS: ATTEND Otolaryngology Plastic Surgery within the Head & Neck | DX: J32.9 Chronic sinusitis, unspecified (principal); J34.2 Deviated nasal septum | CPT/HCPCS: 99214; G0463 ==

== ENCOUNTER 2018-06-20 13:30 | Outpatient (CLI) | payer MEDICARE ==
[~2018-06-20 13:30] MED LIST: Iopamidol 370 76% 100 ML VIAL ONE
--- NOTE | 2018-06-20 15:19 | CT ---
CT OF THE CHEST AND ABDOMEN AND PELVIS WITH IV CONTRAST: DATE: 06/20/2018. PROVIDED CLINICAL HISTORY: Malignant neoplasm of pyloric antrum. FINDINGS: Comparison is made with the examination dated 04/21/2014. CHEST: The heart, pericardium, and great vessels demonstrate an unremarkable CT appearance with the exceptio n of vascular calcification including coronary calcium. There is no evidence for a thoracic lymph no de enlargement. The airway appears patent and of normal caliber. No pleural fluid, pleural thickeni ng, or pneumothorax apparent. There is a nonspecific noncalcified 4 mm nodule involving the anterior aspect of the left upper lobe. There is a 4 mm noncalcified pulmonary nodule involving the anterior aspect of the right middle lobe. No additional pulmonary nodules are identified. ABDOMEN/PELVIS: The liver, spleen, pancreas, kidneys, and adrenal glands demonstrate a stable CT appearance. Postope rative changes involving the stomach and proximal small bowel are redemonstrated. There is no bowel dilatation, inflammatory fat stranding, free fluid, or lymph node enlargement apparent. There is prominent colonic fecal retention. Scattered vascular calcifications are seen. The prostat e gland is mildly prominent and heterogeneous. The osseous structures demonstrate no concerning osteoblastic or osteolytic lesions. IMPRESSION: 1. 4 mm pulmonary nodules in the right middle and left upper lobes, nonspecific. Consider followup. 2. Postoperative changes involving the stomach and proximal small bowel. 3. Conspicuous colonic fecal retention, which may reflect constipation. POS: [facility]
== END 2018-06-20 13:31 | disposition home or self-care (01) ==
LOC: BICCT 13:30
PROVIDERS: ATTEND Internal Medicine Hematology & Oncology
DX: C16.3 Malignant neoplasm of pyloric antrum (principal); R91.8 Other nonspecific abnormal finding of lung field; Z98.890 Other specified postprocedural states
CPT/HCPCS: 71260; 74177; 82565; Q9967

== ENCOUNTER 2019-04-04 09:28 | Outpatient (CLI) | payer MEDICARE ==
--- NOTE | 2019-04-04 11:06 | CT ---
CT THORAX WITH CONTRAST: DATE: 04/04/2019 HISTORY: 78-year-old male follow-up pulmonary nodules. COMPARISON: 06/20/2018 FINDINGS: 4 x 3 x 3 mm noncalcified pulmonary nodule at anterior segment of left upper lobe, unchanged. 5 x 4 x 3 mm noncalcified pulmonary nodule in right middle lobe, unchanged (allowing for slight varia tion in placement of cursors). No new nodules. The rest of the lungs are clear. No pleural effusion or pneumothorax. No mediastinal or hilar lymphadenopathy. No adrenal nodule. Suture lines around stomach. No thoracic aortic aneurysm. No cardiomegaly or pericardial effusion. No destructive osseous lesion. No interval change overall. IMPRESSION: 1) no interval change in the 5 mm right middle lobe pulmonary nodule and the 4 mm left upper lobe pul monary nodule. 2.) Status post bariatric surgery. 3) recommend follow-up chest CT in March 2020.
== END 2019-04-04 09:29 | disposition home or self-care (01) ==
LOC: CT 09:28
PROVIDERS: ATTEND Internal Medicine Hematology & Oncology
DX: R91.8 Other nonspecific abnormal finding of lung field (principal); C16.3 Malignant neoplasm of pyloric antrum; Z98.84 Bariatric surgery status
CPT/HCPCS: 71260

== ENCOUNTER 2019-09-27 07:04 | Outpatient (CLI) | payer MEDICARE, OTHER ==
[2019-09-27 20:43] LABS: Hemoglobin 13.9 g/dL (14.0-18.0); Mean Corpuscular HGB CONC 34.3 g/dL (32.0-36.0); Mean Corpuscular Volume 96.1 fL (78.0-98.0); Mean Platelet Volume 9.7 fL (7.4-10.4); Platelet Count 185 thou/uL (130-400); RBC Distribution Width 12.1 % (11.5-14.5); Red Blood Cell (RBC) Count 4.23 mill/uL (4.70-6.10); White Blood Cell (WBC) Count 5.2 thou/uL (4.8-10.8)
[2019-09-27 20:51] LABS: Bacteria/HPF None Seen HPF (None Seen); Bilirubin Negative (Negative); Blood, Urine Negative (Negative); Clarity Clear (Clear); Glucose, Urine (Dipstick) Normal (Negative); Leukocyte Negative Leu/uL (Negative); Nitrite Negative (Negative); Protein, Urine (Dipstick) Negative (Neg-Trace); Squamous Epithelial None Seen HPF (0-3); Urobilinogen Normal mg/dL (Less than 2); WBC/HPF 0-3 HPF (0-3)
[2019-09-27 21:04] LABS: Anion Gap 16 mmol/L (10-20); BUN (Urea Nitrogen) 22 mg/dL (8.4-25.7); Calc. Creatinine Clearance 0 mL/min (70-130); Calcium 9.6 mg/dL (7.8-10.44); Carbon Dioxide 25 mmol/L (23-31); Chloride 104 mmol/L (98-107); Estimated GFR-MDRD 73; Glucose 127 mg/dL (83-110); Potassium 5.1 mmol/L (3.5-5.1); Sodium 140 mmol/L (136-145)
[2019-09-28 11:33] LABS: SARS-CoV-2 MS2 Positive; SARS-CoV-2 N Gene Negative; SARS-CoV-2 S Gene Negative; SARS-CoV-2 orf1ab Negative
== END 2019-09-27 07:05 | disposition home or self-care (01) ==
LOC: LABBT 07:04
PROVIDERS: ATTEND Urology
DX: Z01.812 Encounter for preprocedural laboratory examination (principal); Z11.59 Encounter for screening for other viral diseases; N40.1 Benign prostatic hyperplasia with lower urinary tract symptoms; N39.9 Disorder of urinary system, unspecified
CPT/HCPCS: 80048; 81001; 85027; 87086; U0003; 87635

== ENCOUNTER 2019-10-01 06:10 | Day surgery (SDC) | payer MEDICARE ==
[2019-09-26 09:39] VITALS: BMI 21.4
[2019-10-01] MEDS ORDERED: Ketamine 50 MG/ML (10ML VIAL) ONE (06:55)
[2019-10-01] MEDS ORDERED: Fentanyl 100 MCG/2 ML VIAL ONE (06:55)
[2019-10-01] MEDS ORDERED: Propofol 1,000 MG/100 ML VIAL IV ONE (06:56)
[2019-10-01] MEDS ORDERED: Levofloxacin 500 mg/D5W 100 ml Premix Bag ONE (07:13)
[2019-10-01] MEDS ORDERED: Ketorolac Tromethamine 30 MG/ML VIAL ONE (08:10)
[2019-10-01] MEDS ORDERED: Oxybutynin 5 MG TAB ONE (08:10)
[2019-10-01] MEDS ORDERED: Phenazopyridine HCl 97.5 MG TABLET ONE (08:10)
--- NOTE | 2019-10-01 08:34 | OP ---
DATE OF PROCEDURE: 10/01/2019 PREOPERATIVE DIAGNOSIS: Enlarged prostate with lower urinary tract symptoms. POSTOPERATIVE DIAGNOSIS: Enlarged prostate with lower urinary tract symptoms. PROCEDURE PERFORMED: Cystoscopy with prostatic lift device/UroLift. ANESTHESIA: TIVA. COMPLICATIONS: None. BLOOD LOSS: Minimal. SPECIMEN: None. DESCRIPTION OF PROCEDURE: After informed consent, the patient was taken to the operating room, transferred to the table on his own power. Anesthesia was established. A time-out was performed showing the correct patient, site, and procedure. Preoperative antibiotics were administered. He was prepped and draped in the lithotomy position. The 20-Cymraes cystoscope was inserted into the bladder. The bladder was systematically examined noting no mucosal abnormalities with moderate trabeculation and several small diverticula. The prostate was then examined noting high bladder neck with coapting lateral lobes. There was slight asymmetry with right greater than left lateral lobe size. The cystoscopy bridge was replaced with the UroLift delivery device. The first treatment site was the patient's left side approximately 2 cm distal to the bladder neck. The distal tip of the delivery device was angled laterally approximately 20 degrees of this position to compress the lateral lobe. The trigger was pulled, deploying the needle; however, this seemed to be a bone strike and the needle retracted back into the device. The same procedure was repeated at the same location again with a bone strike. I then elected to turn my attention to the right side approximately 2 cm distal to the bladder neck. The tip of the delivery device was angled laterally 20 degrees to compress the lateral lobe. The trigger was pulled, deploying the needle containing the implant through the prostate. The needle was then retracted, allowing one end of the implant to be delivered to the capsular surface of the prostate. The implant was then tensioned to assure capsular seating and removal of slack monofilament. The device was then angled back toward midline and slowly advanced proximally 3 to 4 mm until cystoscopic verification of the monofilament being centered in the delivery bay. The urethral end piece was then affixed to the monofilament, thereby tailoring the size of the implant. Excess filament was then severed. The delivery device was then readvanced into the bladder. The same procedure was repeated at the distal aspect of the prostate just proximal to the verumontanum, again on the right and then the left following similar technique. I then re-approached the left proximal prostate and angling about 10 degrees before compressing the lateral lobe. The implant was deployed successfully at this location. I then switched back to the visual obturator, noting continued obstruction in the mid prostate from the right lateral lobe. The seventh implant was then deployed at this location successfully. Final cystoscopic view revealed no persistent obstruction with an an excellent anterior channel with irrigation turned off. Total number of implants used, 7. The patient was then awoken from anesthesia, transferred back to his hospital bed and taken to PACU in stable condition, where he will undergo a void trial and discharged home if successful. Otherwise, he will have a catheter placed. Job ID: [id number]
== END 2019-10-01 11:50 | disposition home or self-care (01) ==
LOC: SDC 06:10
PROVIDERS: ATTEND Urology
PROC: 0T7D8DZ Dilation of Urethra with Intraluminal Device, Via Natural or Artificial Opening Endoscopic (ICD-10-PCS; principal; 2019-10-01)
DX: N40.1 Benign prostatic hyperplasia with lower urinary tract symptoms (principal); N13.8 Other obstructive and reflux uropathy; R35.1 Nocturia; E11.9 Type 2 diabetes mellitus without complications; I10 Essential (primary) hypertension; K21.9 Gastro-esophageal reflux disease without esophagitis; N52.9 Male erectile dysfunction, unspecified; Z85.028 Personal history of other malignant neoplasm of stomach; Z87.891 Personal history of nicotine dependence; Z79.84 Long term (current) use of oral hypoglycemic drugs; Z79.899 Other long term (current) drug therapy; Z88.5 Allergy status to narcotic agent; Z90.3 Acquired absence of stomach [part of]
CPT/HCPCS: C1889; J1885; J1956; J2704; J3010

== ENCOUNTER 2020-02-21 13:07 | Emergency (ER) | payer MEDICARE ==
[2020-02-21 14:25] LABS: #Basophils 0.1 thou/uL (0.0-0.2); #Eosinphils 0.1 thou/uL (0.0-0.7); #Lymphocytes 1.4 thou/uL (1.20-3.40); #Monocytes 0.4 thou/uL (0.11-0.59); #Neutrophils 3.7 thou/uL (1.40-6.50); %Basophils 1.2 % (0.0-1.0); %Eosinophils 0.9 % (0.0-10.0); %Lymphocytes 24.9 % (21.0-51.0); %Monocytes 6.9 % (0.0-10.0); %Neutrophils 66.2 % (42.0-75.0); Hemoglobin 12.5 g/dL (14.0-18.0); Mean Corpuscular HGB CONC 32.5 g/dL (32.0-36.0); Mean Corpuscular Hemoglobin 30.8 pg (27.0-31.0); Mean Corpuscular Volume 94.8 fL (78.0-98.0); Mean Platelet Volume 8.5 fL (7.4-10.4); Platelet Count 187 thou/uL (130-400); RBC Distribution Width 11.9 % (11.5-14.5); Red Blood Cell (RBC) Count 4.07 mill/uL (4.70-6.10); White Blood Cell (WBC) Count 5.7 thou/uL (4.8-10.8)
[2020-02-21 14:27] LABS: Bilirubin Negative (Negative); Blood, Urine Negative (Negative); Clarity Turbid (Clear); Glucose, Urine (Dipstick) Normal (Negative); Ketone, Urine Negative (Negative); Leukocyte Negative Leu/uL (Negative); Nitrite Negative (Negative); Protein, Urine (Dipstick) Negative (Neg-Trace); Specific Gravity, Urine 1.008 (1.002-1.036); Urobilinogen Normal mg/dL (Less than 2); pH, Urine 7.5 (5.0-9.0)
[2020-02-21 14:46] LABS: ALT (SGPT) 10 U/L (8-55); AST (SGOT) 13 U/L (5-34); Albumin 3.9 g/dL (3.4-4.8); Alkaline Phosphatase 60 U/L (40-110); Anion Gap 13 mmol/L (10-20); BUN (Urea Nitrogen) 21 mg/dL (8.4-25.7); Bilirubin, Total 0.4 mg/dL (0.2-1.2); Calc. Creatinine Clearance 0 mL/min (70-130); Carbon Dioxide 29 mmol/L (23-31); Chloride 100 mmol/L (98-107); Globulin 2.8 g/dL (2.4-3.5); Glucose 161 mg/dL (83-110); Potassium 3.8 mmol/L (3.5-5.1); Protein, Total 6.7 g/dL (5.8-8.1); Sodium 138 mmol/L (136-145)
--- NOTE | 2020-02-21 14:53 | RAD ---
XR Chest 1 View Portable History: Near syncope Comparison: Radiograph November 2017 Findings: Lungs are clear. No pneumothorax or effusion. Cardiac silhouette and mediastinal contours a re within normal limits. No acute osseous abnormality. Impression: No acute intrathoracic abnormality.
[2020-02-21 15:17] LABS: CK (CPK) 97 U/L (30-200); Lipase 7 U/L (8-78)
[2020-02-21] MEDS ORDERED: Iopamidol-370 76% 500 ML 1 ML ONE (15:21)
--- NOTE | 2020-02-21 16:15 | CT ---
CT ABDOMEN AND PELVIS WITH IV CONTRAST 02/21/2020 CLINICAL INFORMATION: Abdominal pain and bloating for 4 days. COMPARISON: 12/07/2017 Technique: Multiple contiguous axial CT images are obtained through the abdomen and pelvis with IV contrast. Cor onal reformatted images are provided. FINDINGS: Lower Chest: Lung bases are clear. Vessels: Scattered vascular calcifications in the abdominal aorta and iliac arteries. The common hepa tic artery is not well visualized and may be secondary to severe narrowing in this region on occlusion with reconstitution of the proper hepatic artery via the gastroduodenal artery. Similar fin ding was seen on prior exam in 2018. Abdomen: Portal vein:Patent Gallbladder: Within normal limits for CT imaging. Liver: within normal limits. Spleen: Calcified granuloma present. Pancreas: within normal limits. Adrenals: within normal limits. Kidneys: within normal limits. Bowel: Postoperative changes of multiple loops of small bowel and stomach are seen in the upper abdom en with findings likely related to partial gastrectomy. There is a moderate amount retained fecal material seen throughout the colon. Loops of small bowel are normal in caliber. Appendix: The appendix is visualized and normal in caliber. Peritoneum: No ascites or free air; no fluid collection. Mesentery and Retroperitoneum: No enlarged mesenteric or retroperitoneal lymph nodes. Abdominal Wall: within normal limits. Pelvis: Reproductive Organs: Prostate gland is enlarged measuring 5.9 cm transverse dimensions with multiple calcifications and radiotherapy seeds present. Bladder: Incompletely distended. Bones: Degenerative changes in the spine. No suspicious lytic or sclerotic osseous lesions are identi fied. IMPRESSION: 1. No acute findings in the abdomen or pelvis. 2. Postoperative changes of the stomach and small bowel. 3. Constipation. 4. Question of severe narrowing or possibly occlusion of the proximal common hepatic artery. However, this was present on prior exams. 5. Enlargement prostate gland. Prostate calcifications and radiotherapy seeds are present.
--- NOTE | 2020-02-29 15:55 | EKG ---
Test Reason : Blood Pressure : / mmHG Vent. Rate : 074 BPM Atrial Rate : 074 BPM P-R Int : 130 ms QRS Dur : 104 ms QT Int : 376 ms P-R-T Axes : 054 041 052 degrees QTc Int : 417 ms Normal sinus rhythm Incomplete right bundle branch block Nonspecific T wave abnormality Abnormal ECG Confirmed by KAVITA MCMAHON ([id number]), associate editor GREGOR BUTTS ([id number]) on 02/29/2020 3:55:01 PM Referred By: Confirmed By:KAVITA MCMAHON
== END 2020-02-21 17:20 | disposition short-term general hospital (02) ==
LOC: ERS 13:07
DX: R10.32 Left lower quadrant pain (principal); R14.0 Abdominal distension (gaseous); N40.0 Benign prostatic hyperplasia without lower urinary tract symptoms; E11.9 Type 2 diabetes mellitus without complications; Z85.028 Personal history of other malignant neoplasm of stomach; Z79.84 Long term (current) use of oral hypoglycemic drugs; Z79.899 Other long term (current) drug therapy
CPT/HCPCS: 36415; 71045; 74177; 80053; 81003; 82550; 83690; 84484; 85025; 87086; 93005; Q9967

== ENCOUNTER 2020-05-08 09:49 | Outpatient (CLI) | payer MEDICARE ==
[2020-05-08] MEDS ORDERED: Iopamidol 370 76% 100 ML VIAL ONE (14:02)
== END 2020-05-08 09:50 | disposition home or self-care (01) ==
LOC: CT 09:49
PROVIDERS: ATTEND Internal Medicine Hematology & Oncology
DX: R91.8 Other nonspecific abnormal finding of lung field (principal); Z85.028 Personal history of other malignant neoplasm of stomach; Z85.048 Personal history of other malignant neoplasm of rectum, rectosigmoid junction, and anus
CPT/HCPCS: 71260; 82565; Q9967

== ENCOUNTER 2020-08-17 10:15 | Emergency (ER) | payer MEDICARE ==
[2020-08-17 11:13] LABS: #Eosinphils 0.1 thou/uL (0.0-0.7); #Lymphocytes 1.7 thou/uL (1.20-3.40); #Monocytes 0.3 thou/uL (0.11-0.59); #Neutrophils 2.1 thou/uL (1.40-6.50); %Basophils 0.6 % (0.0-1.0); %Eosinophils 1.3 % (0.0-10.0); %Lymphocytes 40.5 % (21.0-51.0); %Monocytes 6.9 % (0.0-10.0); %Neutrophils 50.6 % (42.0-75.0); Mean Corpuscular Hemoglobin 32.7 pg (27.0-31.0); Mean Platelet Volume 8.5 fL (7.4-10.4); Platelet Count 177 thou/uL (130-400); RBC Distribution Width 11.6 % (11.5-14.5); White Blood Cell (WBC) Count 4.2 thou/uL (4.8-10.8)
[2020-08-17 11:21] LABS: Amphetamine Not Detected (NotDetected); Barbiturates Screen Not Detected (NotDetected); Benzodiazepine Screen Not Detected (NotDetected); Cocaine Metabolite Screen Not Detected (NotDetected); Medtox Control Line Valid? VALID (VALID); Medtox Reader # READER 1; Methadone Not Detected (NotDetected); Methamphetamine Not Detected (NotDetected); Opiate Screen Not Detected (NotDetected); Oxycodone Screen Not Detected (NotDetected); Phencyclidine (PCP) Not Detected (NotDetected); THC/Cannabinoid Screen Not Detected (NotDetected); Tricyclic Screen Not Detected (NotDetected)
[2020-08-17 11:33] LABS: ALT (SGPT) 10 U/L (8-55); AST (SGOT) 10 U/L (5-34); Acetaminophen Less than 6.0 mcg/mL (10.0-30.0); Albumin 4.2 g/dL (3.4-4.8); Alcohol Less than 10 mg/dL (Less than 10); Alkaline Phosphatase 69 U/L (40-110); Anion Gap 12 mmol/L (10-20); BUN (Urea Nitrogen) 15 mg/dL (8.4-25.7); Bilirubin, Total 0.8 mg/dL (0.2-1.2); Calc. Creatinine Clearance 0 mL/min (70-130); Calcium 9.5 mg/dL (7.8-10.44); Carbon Dioxide 28 mmol/L (23-31); Chloride 103 mmol/L (98-107); Glucose 189 mg/dL (83-110); Protein, Total 7.2 g/dL (5.8-8.1); Salicylate Less than 8.0 mg/dL (15.0-30.0); Sodium 139 mmol/L (136-145)
== END 2020-08-17 16:30 | disposition home or self-care (01) ==
LOC: ERS 10:15
DX: F43.20 Adjustment disorder, unspecified (principal); I10 Essential (primary) hypertension; E11.9 Type 2 diabetes mellitus without complications; Z79.84 Long term (current) use of oral hypoglycemic drugs; Z79.899 Other long term (current) drug therapy
CPT/HCPCS: 36415; 70450; 80053; 80306; 80307; 84443; 85025

== ENCOUNTER 2020-10-07 16:01 | Outpatient (CLI) | payer MEDICARE | END 2020-10-07 16:02 | disposition home or self-care (01) | LOC: BICRAD 16:01 | PROVIDERS: ATTEND Family Medicine | DX: M54.9 Dorsalgia, unspecified (principal); S29.9XXA Unspecified injury of thorax, initial encounter; S39.92XA Unspecified injury of lower back, initial encounter; S22.069A Unspecified fracture of T7-T8 vertebra, initial encounter for closed fracture | CPT/HCPCS: 72072; 72220 ==

== ENCOUNTER 2021-04-29 08:49 | Outpatient (CLI) | payer MEDICARE | END 2021-04-29 08:50 | disposition home or self-care (01) | LOC: BICCT 08:49 | PROVIDERS: ATTEND Internal Medicine Hematology & Oncology | DX: R91.8 Other nonspecific abnormal finding of lung field (principal); C16.3 Malignant neoplasm of pyloric antrum | CPT/HCPCS: 71260; 82565 ==